=== PATIENT | female | born 2000 | race Caucasian/White ===

== ENCOUNTER 2023-08-19 15:45 | Emergency (ER) | payer SELFPAY ==
[~2023-08-19] VITALS: Ht 157.5 cm; Wt 68.2 kg
[2023-08-19 16:20] VITALS: BP 118/72; TEMP 97.6
[2023-08-19] MEDS ORDERED: diphenhydrAMINE 50 MG/ML 1 ML VIAL IM ONE (19:15)
[2023-08-19] MEDS ORDERED: Ketorolac 30 MG/ML VIAL IM ONE (19:15)
[2023-08-19 21:19] VITALS: PULSE 90
== END 2023-08-19 21:20 | disposition home or self-care (01) ==
LOC: COL.ER 15:45
DX: R51.9 Headache, unspecified (principal); Z86.69 Personal history of other diseases of the nervous system and sense organs
CPT/HCPCS: J0780; J1200; J1885